=== PATIENT | male | born 1935 | race Caucasian/White ===

== ENCOUNTER → 2019-02-20 09:18 | Outpatient (CLI) | payer MEDICARE, OTHER, SELFPAY ==
--- NOTE | 2019-02-20 | DI.CT.S_ITS ---
PROCEDURE: CT CHEST ABD PEL W CON INDICATIONS: PROSTATE CANCER TECHNIQUE: After the administration of oral and intravenous contrast, 5 mm thick sections acquired from the lung apices to the symphysis. 5 mm coronal and sagittal reformats were performed, with additional 7 mm coronal MIP reformats through the lungs. For radiation dose reduction, the following was used: automated exposure control, adjustment of mA and/or kV according to patient size. COMPARISON: Lumbar spine radiographs 01/20/2019. Pelvic radiographs 10/08/2015. FINDINGS: Image quality: Excellent. CHEST: Lungs and pleura: No acute airspace opacities. No mass or suspicious pulmonary nodule. No pleural effusions or pneumothorax. Central and peripheral airways appear patent and normal in caliber. Mediastinum: Left upper paratracheal heterogeneous circumscribed mass measuring 3.9 x 2.2 cm, (2/15). This appears to be contiguous with the left lobe of the thyroid gland. Right inferior thyroid nodule measuring approximately 1.4 cm, (2/8). Heart size is normal. Coronary artery calcifications. No pericardial effusion. No mediastinal or hilar adenopathy by size criteria. Thoracic aorta and central pulmonary arteries are normal in size. No central pulmonary embolism. Esophagus is normal in caliber. Small hiatal hernia. Surgical clips at the diaphragmatic hiatus and likely prior Pippa fundoplication. Chest wall: No axillary or supraclavicular adenopathy by size criteria. ABDOMEN: Solid organs: Liver is normal in size. Diffuse low-attenuation of the liver suggestive of hepatic steatosis. Subcentimeter hypodensity in the left lobe of liver and in the dome most likely represents a benign cyst or hemangioma. Gallbladder is unremarkable. Biliary system is non dilated. Pancreas enhances normally. Spleen is normal in size and enhancement. No adrenal nodules. Moderate right hydroureteronephrosis. Enhancing lesion in the mid right ureter which appears to be the point of obstruction, (2/94). Renal enhancement appears symmetric. No solid renal mass. No kidney stones seen. Peritoneum and bowel: Bowel loops demonstrate normal wall thickness and caliber. No obstruction. Appendix is normal. No free fluid or air. Nodes and vessels: No retroperitoneal or mesenteric adenopathy by size criteria. Aorta and inferior vena cava are normal in size. Moderate calcified atherosclerotic plaque. Miscellaneous: No ventral hernias. PELVIS: Genitourinary: The bladder is only partially distended. Urinary bladder wall thickness is at the upper limits of normal. Prostatomegaly. No enlarged nodes identified. Miscellaneous: Large left inguinal hernia containing a loop of small bowel. Bowel within the hernia sac is not distended and there is no free fluid. Bones: Multifocal sclerotic lesions suspicious for metastases. For example: Right lateral seventh rib sclerosis, (2/40). Sclerosis at L1, L2, L5, and punctate focus of sclerosis in T12, (4/40). Compression fracture of L3 without associated sclerosis. Rounded sclerotic foci in both inferior pubic ramus and both iliac wings. IMPRESSION: 1. Moderate right hydroureteronephrosis with an enhancing lesion in the mid right ureter. 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 2. Multifocal sclerotic lesions most compatible with prostate cancer metastases. Bone scan could be performed to further define the extent of disease if clinically indicated. 3. No enlarged lymph nodes. 4. Left inguinal hernia containing small bowel. No bowel obstruction. Dictated by: Ed Cruz M.D. on 02/20/2019 at 11:51 Approved by: Ed Cruz M.D. on 02/20/2019 at 12:17
== END ==
PROVIDERS: Family Provider Family Medicine; PCP Family Medicine; Visit Provider Urology
DX: C61 Malignant neoplasm of prostate (principal); N13.30 Unspecified hydronephrosis; K40.90 Unilateral inguinal hernia, without obstruction or gangrene, not specified as recurrent
CPT/HCPCS: 71260; 74177; Q9967

== ENCOUNTER → 2019-03-06 09:37 | Outpatient (CLI) | payer MEDICARE, OTHER, SELFPAY ==
--- NOTE | 2019-03-06 | DI.NM.S_ITS ---
PROCEDURE: NM BONE SCAN WHOLE BODY RADIOPHARMACEUTICAL: 20.9 mCi Tc-99m MDP IV. INDICATIONS: PROSTATE CANCER TECHNIQUE: Delayed whole-body scintigrams were obtained approximately 3-4 hours after intravenous injection of radiotracer. Anterior and posterior views were acquired from vertex to feet. COMPARISON: [facility], CR, XR LUMBAR SPINE 2 OR 3 VIEWS, 01/20/2019, 14:50. [facility], CT, CT CHEST ABD PEL W CON, 02/20/2019, 10:18. FINDINGS: There are multiple foci of increased uptake involving the right second, seventh, and eighth ribs, and the left sixth rib, T12, L1, L2 and L5, sacrum, iliac bones bilaterally, right and Ischia, consistent with metastasis. There is moderate right hydronephrosis. Degenerative changes are noted in multiple peripheral joints. IMPRESSION: 1. 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 Moderate right hydronephrosis. Dictated by: Jose Cruz Gorman M.D. on 03/06/2019 at 15:02 Approved by: Jose Cruz Gorman M.D. on 03/07/2019 at 18:00
== END ==
PROVIDERS: Family Provider Family Medicine; PCP Family Medicine; Visit Provider Urology
DX: C61 Malignant neoplasm of prostate (principal); C79.51 Secondary malignant neoplasm of bone; N13.30 Unspecified hydronephrosis
CPT/HCPCS: 78306; A9503

== ENCOUNTER → 2019-07-15 16:19 | Outpatient (CLI) | payer MEDICARE, OTHER, SELFPAY ==
--- NOTE | 2019-07-15 | DI.US.S_ITS ---
PROCEDURE: US RENAL COMPLETE INDICATIONS: UNSPECIFIED HYDRONEPHROSIS TECHNIQUE: Real-time scanning was performed of the kidneys and bladder, with image documentation. COMPARISON: [facility], CR, XR RETROGRADE UROGRAPHY, 03/25/2019, 12:23. [facility], CR, XR NO CHARGE 30 MINUTES, 03/25/2019, 10:31. [facility], NM, NM BONE SCAN WHOLE BODY, 03/06/2019, 13:13. [facility], CR, XR LUMBAR SPINE 2 OR 3 VIEWS, 01/20/2019, 14:50. [facility], CT, CT CHEST ABD PEL W CON, 02/20/2019, 10:18. FINDINGS: Kidneys: Kidneys are normal in size. Right kidney measures 11.5 cm long; left kidney measures 11.5 cm long. Right renal cortical thickness is 1.9 cm; left renal cortical thickness is 1.6 cm. Renal cortical echotexture is normal. No left-sided hydronephrosis or nephrolithiasis bilaterally. There is mild to moderate right-sided hydronephrosis. No suspicious solid mass lesions. Bladder: Pre-void bladder volume is 183 mL. Post-void residual is 126 mL. Pre-void images demonstrate no intraluminal masses or stones. On pre-void images, bilateral ureteral jets are noted with color Doppler interrogation. (Of note, ureteral jets may not be detectable in up to 25% of cases due to insufficient differences in specific gravity between ureteral and bladder urine). Miscellaneous: No free pelvic fluid. IMPRESSION: Mild to moderate right-sided hydronephrosis, which appears slightly improved from the comparison CT scan from January of last year. A ureteral stent had been placed 03/25/19, and a stent is not currently identified within the collecting system of the right kidney or bladder. 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 Renal cortical thinning has not developed on the right. Dictated by: Gilbert Biggs M.D. on 07/16/2019 at 8:44 Approved by: Gilbert Biggs M.D. on 07/16/2019 at 8:52
== END ==
PROVIDERS: Family Provider Family Medicine; PCP Family Medicine; Visit Provider Urology
DX: N13.30 Unspecified hydronephrosis (principal)
CPT/HCPCS: 76770